=== PATIENT | female | born 1955 | race Caucasian/White ===

== ENCOUNTER → 2019-04-09 13:32 | Outpatient (CLI) | payer BC, SELFPAY ==
--- NOTE | ~2019-04-09 | XR_ITS ---
EXAMINATION: XR chest 2V DATE: 04/09/2019 13:55 INDICATION: Tobacco use TECHNIQUE: Frontal and lateral views of the chest are obtained COMPARISON: None available FINDINGS: There is a 3.8 cm spiculated mass in the right upper lobe. The lungs are hyperinflated. The re is no pleural effusion or pneumothorax. The cardiomediastinal silhouette is normal. There is mild thoracic spondylosis. Surgical clips in the right upper quadrant are likely from prior cholecystectom y. IMPRESSION: 1. 3.8 cm spiculated mass of the right upper lobe concerning for primary bronchogenic carcinoma. Furt her evaluation with CT is recommended. Reviewed, dictated and finalized at location A. Y ASSISTANT IMPRESSION: 1. 3.8 cm spiculated mass of the right upper lobe concerning for primary bronch ogenic carcinoma. Further evaluation with CT is recommended.
== END ==
PROVIDERS: PCP Family Medicine; Visit Provider Family Medicine
DX: R10.9 Unspecified abdominal pain (principal); R91.8 Other nonspecific abnormal finding of lung field
CPT/HCPCS: 71046

== ENCOUNTER → 2019-04-10 14:02 | Outpatient (CLI) | payer BC, SELFPAY ==
--- NOTE | ~2019-04-10 | US_ITS ---
EXAMINATION: US renal BI EXAM DATE: 04/10/2019 14:28 INDICATION: Right leg pain, back pain, symptoms for greater than one week. TECHNIQUE: Multiple grayscale and Doppler images of the kidneys were obtained (by a technologist who performed the scan) and subsequently reviewed. There is no prior study for comparison. FINDINGS: Right kidney: There is normal contour and echogenicity. It measures 10.3 x 3.8 x 5.5 centimeters. T here are no focal renal lesions identified. There is no hydronephrosis. Left kidney: There is normal contour and echogenicity. It measures 10.3 x 4.8 x 4.9 centimeters. Sma ll scattered calyceal region echogenic foci without definite shadowing. There is no hydronephrosis. Bladder unremarkable. IMPRESSION: 1. Possible left nephrolithiasis. 2. No hydronephrosis. Reviewed, dictated and finalized at location B. E FERRY OPERATOR
== END ==
PROVIDERS: PCP Family Medicine; Visit Provider Family Medicine
DX: R52 Pain, unspecified (principal); Z87.442 Personal history of urinary calculi; Z87.448 Personal history of other diseases of urinary system; R91.8 Other nonspecific abnormal finding of lung field; F17.200 Nicotine dependence, unspecified, uncomplicated
CPT/HCPCS: 76775

== ENCOUNTER → 2019-04-13 09:13 | Outpatient (CLI) | payer BC, SELFPAY ==
--- NOTE | ~2019-04-13 | CT_ITS ---
EXAMINATION: CT chest wo con DATE: 04/13/2019 09:30 INDICATION: Abnormal masses seen on recent chest x-ray TECHNIQUE: Computed tomography (CT) of the chest was performed without intravenous contrast. The dose -length product was 135.91 mGy-cm. Automated exposure control and iterative reconstruction technique were employed. COMPARISON: Chest dated 04/09/2019 FINDINGS: There is a right upper lobe mass measuring 4.1 x 3.9 x 3.3 cm, compatible with primary bron chogenic carcinoma. There is emphysema. There is an irregular cystic lesion of the right middle lobe with nodular appearance to the wall. No endobronchial lesions. There is a borderline size precarinal lymph node measuring 8.5 mm, image 49. There is atherosclerosis of the aorta and coronary arteries. S tatus post cholecystectomy. There are nonobstructing left renal stones. There is a superior endplate compression fracture of T11, likely chronic. IMPRESSION: 1. 4.1 cm right upper lobe mass, concerning for primary bronchogenic carcinoma. Percutaneous biopsy r ecommended. 2: Nonspecific nodular cystic lesion right middle lobe. This is most likely infectious/inflammatory a lthough metastatic disease is not excluded. 3: Borderline sized mediastinal lymph node, nonspecific. 4: Nonobstructing left nephrolithiasis. Reviewed, dictated and finalized at location B. AISER TIMBER IMPRESSION: 1. 4.1 cm right upper lobe mass, concerning for primary bronchogenic carcinoma. Percutaneous biopsy recommended. 2: Nonspecific nodular cystic lesion right middle lobe. This is most likely inf ectious/inflammatory although metastatic disease is not excluded. 3: Borderline sized mediastinal lymph node, nonspecific. 4: Nonobstructing left nephrolithiasis.
== END ==
PROVIDERS: PCP Family Medicine; Visit Provider Family Medicine
DX: R91.8 Other nonspecific abnormal finding of lung field (principal); N20.0 Calculus of kidney
CPT/HCPCS: 71250

== ENCOUNTER → 2019-05-05 13:46 | Outpatient (CLI) | payer BC, SELFPAY ==
--- NOTE | ~2019-05-05 | MR_ITS ---
EXAMINATION: MR brain/brain stem wo/w con DATE: 05/05/2019 14:35 INDICATION: Lung cancer. Metastases. TECHNIQUE: Magnetic resonance imaging (MRI) of the brain and brainstem was performed without and with 10 cc MultiHance intravenous contrast. Sequences included sagittal and axial T1-weighted SE, axial d iffusion-weighted FS SE, axial T2*-weighted GRE, axial T2-weighted FLAIR Propeller, and axial T2-weig hted Propeller. Apparent diffusion coefficient (ADC) maps were created. COMPARISON: None. FINDINGS: Brain parenchymal volume is normal for age. Structures of the posterior fossa including 7/8 th cranial nerve complexes are normal. There are scattered mild periventricular and subcortical white matter changes, most likely related to small vessel ischemic disease (microangiopathy). No evidence for acute infarction or hemorrhage. No abnormal contrast enhancement, mass or mass effect. Structures of the posterior fossa are unremarkable. Small air-fluid level left maxillary sinus. Orbits are symm etric. IMPRESSION: 1. No acute intracranial abnormality. No evidence for metastatic disease. 2: Chronic age-related findings. 3: Mild left maxillary sinusitis. Reviewed, dictated and finalized at location A.
[2019-05-05 14:12] LABS: Estimated Glomerular Filt Rate > 60
== END ==
PROVIDERS: PCP Family Medicine
DX: C34.90 Malignant neoplasm of unspecified part of unspecified bronchus or lung (principal); J32.0 Chronic maxillary sinusitis
CPT/HCPCS: 36415; 70553; A9577

== ENCOUNTER 2019-12-21 09:01 | Outpatient (CLI) | payer BC, SELFPAY ==
--- NOTE | ~2019-12-21 | CT_ITS ---
EXAMINATION: CT chest abdomen w con EXAM DATE: 12/21/2019 09:38 INDICATION: Metastatic lung cancer TECHNIQUE: Spiral CT of the chest and abdomen was performed following intravenous injection of 100 mL Omnipaque 350. Axial, coronal and sagittal images were reviewed. Coronal maximum intensity pixel i mages of chest reviewed. The dose-length product (DLP) for this examination was 189.39 mGy-cm. The exposure was tailored according to patient size (auto mA exposure control), and iterative reconstruct ion (ASIR) was used as additional dose reduction technique. Comparison is made to prior examination f rom 04/13/2019. FINDINGS: CHEST: There is a right upper lobe mass measuring 2.6 cm (was about 4.2 and March. This has spiculat ions. There is mild to moderate emphysema. No central pulmonary emboli. There are no pleural or jin cardial effusions. Tracheobronchial tree is patent. There is no mediastinal, hilar or axillary ly mphadenopathy. There is no pneumothorax. Heart normal in size. There is mild coronary arterial calcification, arterial sclerosis. ABDOMEN: At the right liver dome there is a hyperenhancing 6 mm region with surrounding 20 mm region of slightly increased enhancement. Could be a flash filling hemangioma. No other liver lesions are id entified. Splenic atrophy. There are cholecystectomy clips. Portal and splenic veins are patent. K idneys enhance symmetrically. There is no hydronephrosis. There is 6 mm left superior calyceal stone . There is no retroperitoneal lymphadenopathy. There is moderate scattered arteriosclerotic disea se, some abdominal aortic ectasia. The stomach and small bowel are unremarkable. There is expected amount of colonic stool. No free i ntraperitoneal gas. There is a slightly sclerotic focus within the T1 vertebral body which is not a pparent on prior study, possible developing osseous metastatic disease. There is mild chronic anterio r wedging of the T11 vertebral body at the superior endplate. IMPRESSION: 1. Decrease in size of right upper lobe mass. 2. Development of vaguely sclerotic region in T1, possible osteoblastic disease. 3. Hyperenhancing small right liver lobe lesion, surrounding halo. Most likely hemangioma. Hypervasc ular metastasis not excludable. 4. Left nephrolithiasis. Reviewed, dictated and finalized at location A. ONAL BUSINESS DIRECTOR IMPRESSION: 1. Decrease in size of right upper lobe mass. 2. Development of vaguely sclerotic region in T1, possible osteoblastic diseas e. 3. Hyperenhancing small right liver lobe lesion, surrounding halo. Most likely hemangioma. Hypervascular metastasis not excludable. 4. Left nephrolithiasis.
[2019-12-21 09:36] LABS: Estimated Glomerular Filt Rate > 60
== END 2019-12-21 09:02 | disposition home or self-care (01) ==
PROVIDERS: PCP Family Medicine; Visit Provider Internal Medicine Medical Oncology
DX: C34.11 Malignant neoplasm of upper lobe, right bronchus or lung (principal); C79.72 Secondary malignant neoplasm of left adrenal gland; N20.0 Calculus of kidney; K76.9 Liver disease, unspecified; I70.90 Unspecified atherosclerosis
CPT/HCPCS: 71260; 74160; Q9967

== ENCOUNTER → 2020-02-25 08:46 | Outpatient (CLI) | payer BC, SELFPAY ==
--- NOTE | ~2020-02-25 | CT_ITS ---
EXAMINATION: CT chest abdomen pelvis w con DATE: 02/25/2020 09:17 INDICATION: Metastatic lung cancer TECHNIQUE: Transaxial computed tomographic images of the chest, abdomen, and pelvis were obtained aft er the administration of 100 cc of Omnipaque 350 intravenous contrast. The dose-length product (DLP) was 376.66 mGy-cm. Automated exposure control and iterative reconstruction technique were employed. COMPARISON: 12/21/2019 FINDINGS: CHEST CT: A 2.7 x 2.5 cm spiculated right upper lobe nodule is stable since the comparison examination. There i s moderate emphysema. A bullae is noted in the right middle lobe. The heart size is normal. There are no pathologically enlarged thoracic lymph nodes. Calcified coronary artery atherosclerosis is noted. There is no pleural effusion or pneumothorax. An unchanged sclerotic lesion is present in the T1 parveen tebral body. Chronic anterior wedging of the T11 vertebral body is noted. ABDOMEN/PELVIS CT: There is a 6 mm enhancing lesion of the liver dome with a subtle 1.7 cm halo of surrounding contrast enhancement. The surrounding enhancement is decreased since the comparison examination. The spleen is atrophic otherwise normal in appearance. The gallbladder is surgically absent. The pancreas right ad renal gland are normal. There is stable mild nodular thickening of the left adrenal gland. A 4 mm non obstructing stone is present in the left kidney upper pole. Cysts of the right kidney measure up to 8 mm. No pathologically enlarged abdominal or pelvic lymph nodes are identified. There is no free intr aperitoneal gas or evidence of bowel obstruction. There is calcified atherosclerosis of the aorta and many of the other arteries. There is mild lumbar spondylosis. IMPRESSION: 1. Stable right upper lobe mass, consistent with primary bronchogenic carcinoma. 2. Enhancing lesion of the liver dome with decrease in size of the surrounding halo of enhancement, p ossibly metastatic disease. 3. Stable indeterminate sclerotic lesion of the T1 vertebral body. 4. Mild nodularity of the left adrenal gland without significant change, likely treated metastatic lorraine george. Reviewed, dictated and finalized at location A. INCT CAPTAIN IMPRESSION: 1. Stable right upper lobe mass, consistent with primary bronchogenic carcinoma . 2. Enhancing lesion of the liver dome with decrease in size of the surrounding halo of enhancement, possibly metastatic disease. 3. Stable indeterminate sclerotic lesion of the T1 vertebral body. 4. Mild nodularity of the left adrenal gland without significant change, likely treated metastatic disease.
[2020-02-25 09:06] LABS: Estimated Glomerular Filt Rate > 60
== END ==
PROVIDERS: PCP Family Medicine; Visit Provider Internal Medicine Medical Oncology
DX: C34.11 Malignant neoplasm of upper lobe, right bronchus or lung (principal); C79.72 Secondary malignant neoplasm of left adrenal gland; R91.8 Other nonspecific abnormal finding of lung field; R93.89 Abnormal findings on diagnostic imaging of other specified body structures
CPT/HCPCS: 71260; 74177; Q9967

== ENCOUNTER → 2020-05-16 10:02 | Outpatient (CLI) | payer BC, SELFPAY ==
--- NOTE | ~2020-05-16 | CT_ITS ---
EXAMINATION: CT chest abdomen pelvis w con EXAM DATE: 05/16/2020 10:32 INDICATION: Malignant neoplasm of upper lobe of right lung . Restaging of metastatic lung cancer on i mmunotherapy. Adrenal cancer. TECHNIQUE: Spiral CT of the chest, abdomen and pelvis was performed following intravenous injection o f 100 mL Omnipaque 350. Axial, coronal and sagittal images were reviewed. Coronal maximum intensity pixel images of chest reviewed. The dose-length product (DLP) for this examination was 341.34 mGy-c m. The exposure was tailored according to patient size (auto mA exposure control), and iterative rec onstruction (ASIR) was used as additional dose reduction technique. Comparison is made to prior exami nation from 02/25/2020. FINDINGS: CHEST: Spiculated necrotic right upper lobe mass measuring about 2.6 x 2.1 cm, overall size does not appear significantly changed. There has been development of extensive interlobular septal thickening surrounding this, probably radiation pneumonitis. There is mild emphysema. Mild hyperinflation. Mild bronchiectasis. There are no pleural or pericardial effusions. Tracheobronchial tree is patent. There is no mediastinal, hilar or axillary lymphadenopathy. There is no pneumothorax. Heart norm al in size. ABDOMEN PELVIS: There is 6 mm hyperenhancing mass at the right liver dome, differential diagnosis inc luding flash filling hemangioma and less likely unchanged hypervascular metastasis. Left adrenal 1.0 cm nodule, adenoma versus metastatic disease. Spleen, right adrenal gland, pancreas are unremarkable. There are cholecystectomy clips. Portal and splenic veins are patent. Kidneys enhance symmetrical ly. There is no hydronephrosis. There is left nephrolithiasis, several stones but largest measuring 4 mm. The uterus is not identified and has likely been surgically resected. The bladder is unremark able. There is no retroperitoneal or pelvic lymphadenopathy. There is aortoiliac ectasia with scat tered arteriosclerotic disease. The appendix is not positively visualized. There is no pericecal inflammatory change to suggest appe ndicitis. The stomach and small bowel are unremarkable. There is moderate amount of colonic stool. No free intraperitoneal gas. Vaguely sclerotic region in T1 appears unchanged, could be hemangio ma. Metastatic disease not excludable. There is chronic mild to moderate T11 anterior wedging. Sequel a from a previously removed left femoral intramedullary anai. IMPRESSION: 1. Necrotic right upper lobe mass, stable but with development of diffuse adjacent interlobular sept al thickening most likely radiation related change assuming that history. 2. Stable small liver lesion, left adrenal lesion and T1 vaguely sclerotic focus. These are indeterm inate. 3. Mild emphysema, hyperinflation and bronchiectasis. 4. Left nephrolithiasis. 5. No new or acute suspicious findings. Reviewed, dictated and finalized at location A. IMPRESSION: 1. Necrotic right upper lobe mass, stable but with development of diffuse omaira cent interlobular septal thickening most likely radiation related change assumi ng that history. 2. Stable small liver lesion, left adrenal lesion and T1 vaguely sclerotic foc us. These are indeterminate. 3. Mild emphysema, hyperinflation and bronchiectasis. 4. Left nephrolithiasis. 5. No new or acute suspicious findings.
[2020-05-16 10:23] LABS: Estimated Glomerular Filt Rate > 60
== END ==
PROVIDERS: PCP Family Medicine; Visit Provider Internal Medicine Medical Oncology
DX: C34.11 Malignant neoplasm of upper lobe, right bronchus or lung (principal); C79.72 Secondary malignant neoplasm of left adrenal gland; J43.9 Emphysema, unspecified; N20.0 Calculus of kidney
CPT/HCPCS: 71260; 74177; Q9967

== ENCOUNTER → 2020-08-16 10:21 | Outpatient (CLI) | payer BC, SELFPAY ==
--- NOTE | ~2020-08-16 | CT_ITS ---
EXAMINATION: CT chest abdomen pelvis w con EXAM DATE: 08/16/2020 10:48 INDICATION: Malignant neoplasm of upper lobe of right lung . Restaging of metastatic lung cancer on chemotherapy, immunotherapy, status post radiation therapy. Adrenal cancer. TECHNIQUE: Spiral CT of the chest, abdomen and pelvis was performed following intravenous injection o f 100 mL Omnipaque 350. Axial, coronal and sagittal images were reviewed. Coronal maximum intensity pixel images of chest reviewed. The dose-length product (DLP) for this examination was 378.38 mGy-c m. The exposure was tailored according to patient size (auto mA exposure control), and iterative rec onstruction (ASIR) was used as additional dose reduction technique. Comparison is made to prior exami nation from 05/16/2020. FINDINGS: CHEST: Spiculated necrotic right upper lobe mass measuring about 2.5 x 1.8 cm (previous dimensions a t this level 2.7 x 2.4 cm), mild decrease in volume. Probably some surrounding mild radiation pneumon itis. No central pulmonary emboli. There is mild emphysema, hyperinflation and bronchiectasis. There are no pleural or pericardial effusions. Tracheobronchial tree is patent. There is no mediastina l, hilar or axillary lymphadenopathy. There is no pneumothorax. Heart normal in size. ABDOMEN PELVIS: Stable 6 mm hyperenhancing mass at the right liver dome, differential diagnosis inclu ding flash filling hemangioma and less likely hypervascular metastasis. Stable left adrenal 1.0 cm no dule, adenoma versus metastatic disease. Spleen, right adrenal gland, pancreas are unremarkable. The re are cholecystectomy clips. Portal and splenic veins are patent. Kidneys enhance symmetrically. There is no hydronephrosis. There is left nephrolithiasis, several stones up to measuring 4 mm. The uterus is not identified and has likely been surgically resected. The bladder is unremarkable. Ther e is no retroperitoneal or pelvic lymphadenopathy. There is aortoiliac ectasia with scattered arter iosclerotic disease. The appendix is not positively visualized. There is no pericecal inflammatory change to suggest appe ndicitis. The stomach and small bowel are unremarkable. There is moderate amount of colonic stool. No free intraperitoneal gas. Vaguely sclerotic region in T1 appears unchanged, most likely heman gioma. There is chronic mild to moderate T11 anterior wedging. Sequela from a previously removed left femoral intramedullary anai. IMPRESSION: 1. Necrotic right upper lobe mass, mild decrease in volume. Adjacent mild radiation pneumonitis. 2. Stable small liver lesion, left adrenal lesion, T1 lesion (probably hemangioma). 3. Mild emphysema, hyperinflation and bronchiectasis. 4. Left nephrolithiasis. 5. No new or acute suspicious findings. Reviewed, dictated and finalized at location A. IMPRESSION: 1. Necrotic right upper lobe mass, mild decrease in volume. Adjacent mild radi ation pneumonitis. 2. Stable small liver lesion, left adrenal lesion, T1 lesion (probably hemangi morris). 3. Mild emphysema, hyperinflation and bronchiectasis. 4. Left nephrolithiasis. 5. No new or acute suspicious findings.
[2020-08-16 10:37] LABS: Estimated Glomerular Filt Rate 56
== END ==
PROVIDERS: PCP Family Medicine; Visit Provider Internal Medicine Medical Oncology
DX: C34.11 Malignant neoplasm of upper lobe, right bronchus or lung (principal); K76.89 Other specified diseases of liver; J43.9 Emphysema, unspecified; N20.0 Calculus of kidney
CPT/HCPCS: 71260; 74177; Q9967

== ENCOUNTER → 2021-02-23 12:39 | Outpatient (CLI) | payer BC, SELFPAY ==
--- NOTE | ~2021-02-23 | CT_ITS ---
EXAMINATION: CT chest abdomen pelvis w con EXAM DATE: 02/23/2021 13:11 INDICATION: Malignant neoplasm of upper lobe of right lung. TECHNIQUE: Spiral CT of the chest, abdomen and pelvis was performed following intravenous injection o f 100 mL Omnipaque 350. Axial, coronal and sagittal images chest, abdomen and pelvis were reviewed. Coronal maximum intensity pixel images of chest reviewed. The dose-length product (DLP) for this ex amination was 323.18 mGy-cm. The exposure was tailored according to patient size (auto mA exposure c ontrol), and iterative reconstruction (ASIR) was used as additional dose reduction technique. Compari son is made to prior examination from 08/16/2020. FINDINGS: CHEST: Stable appearance, size to the right upper lobe heterogeneous density pleural-based masslike opacity, measuring 2.5 x 1.7 cm and associated spiculations rating out from this. Appearance is consi stent with treated malignancy. Mild to moderate emphysema and hyperinflation. Mild bronchiectasis. Th ere are no pleural or pericardial effusions. Tracheobronchial tree is patent. There is no mediast inal, hilar or axillary lymphadenopathy. There is no pneumothorax. Heart normal in size. No centr al pulmonary emboli. There is moderate coronary arterial calcification, arterial sclerosis. ABDOMEN PELVIS: Right liver dome 6 mm region of arterial enhancement is also stable, could be flash f illing hemangioma, small vascular malformation, less likely hypervascular metastasis. No other liver lesions. Left adrenal nodularity stable. Pancreas is unremarkable. There are cholecystectomy clips. Portal and splenic veins are patent. Kidneys enhance symmetrically. There is no hydronephrosis. The uterus is unremarkable. The bladder is unremarkable. There is no retroperitoneal or pelvic lym phadenopathy. There is extensive scattered arterial sclerotic disease. There are no findings to suggest appendicitis. The stomach and small bowel are unremarkable. There is expected amount of colonic stool. No free intraperitoneal gas. There are no osteoblastic or os teolytic lesions identified. T1 lesion with thickened trabeculation probably hemangioma. Mild to mode rate compression fracture of T11, chronic. Left femoral defect which could be from prior intramedulla ry anai. IMPRESSION: 1. Stable right upper lobe treated malignancy. 2. Stable small right liver dome lesion. 3. Stable left adrenal nodularity. 4. Mild to moderate emphysema and hyperinflation. Reviewed, dictated and finalized at location A. ARD RACETRACK
[2021-02-23 12:57] LABS: Estimated Glomerular Filt Rate > 60
== END ==
PROVIDERS: PCP Family Medicine; Visit Provider Internal Medicine Medical Oncology
DX: C34.11 Malignant neoplasm of upper lobe, right bronchus or lung (principal); K76.9 Liver disease, unspecified; E27.8 Other specified disorders of adrenal gland; J43.9 Emphysema, unspecified; R91.8 Other nonspecific abnormal finding of lung field
CPT/HCPCS: 71260; 74177; Q9967

== ENCOUNTER → 2021-06-09 10:11 | Outpatient (CLI) | payer BC, SELFPAY ==
--- NOTE | ~2021-06-09 | CT_ITS ---
EXAMINATION: CT chest abdomen pelvis w con DATE: 06/09/2021 10:45 INDICATION: Right upper lobe lung cancer restaging TECHNIQUE: Computed tomography (CT) of the chest, abdomen, and pelvis was performed with 100 CC Omnip aque 350 intravenous contrast. Automated exposure control and iterative reconstruction technique were employed. Exam dose: 324.19 mGy-cm total exam DLP. COMPARISON: 02/23/2021 CT chest abdomen pelvis FINDINGS: CHEST CT: Mild bilateral stable apical scarring. Stable posteromedial right upper lobe paraspinal scarring, not significantly changed since 02/23/2021. Mild discoid atelectasis in the left lower lobe since 02/23/2021. Mild to moderate emphysematous changes. No significant new or developing pulmonary mass density is no ann marie. Normal size and homogeneous attenuation of the thyroid gland. Normal heart size. Coronary artery calcification. Thoracic aortic and great vessel calcification. No thoracic aortic aneurysm or dissection. No pericardial or pleural effusion. No hilar or mediastinal mass lesion or lymphadenopathy. ABDOMEN/PELVIS CT: Status post cholecystectomy. No hepatic or splenic, pancreatic, adrenal or suspicious renal space occ upying mass lesion is evident. Several renal cysts are noted, largest on the right, measuring 11 mm. Nonobstructing upper pole left renal 3 mm calculus. No ureteral calculus or hydroureteronephrosis is noted on either side. The urinary bladder is unremarkable. There is extensive abdominal aortic calcification but no aneurysm. Prominent calcification of the ed ac and femoral arteries. There are shotty nonenlarged periaortic and aortocaval lymph nodes. No intraperitoneal or retroperito maricarmen or pelvic mass lesion or adenopathy or ascites is noted. No bowel obstruction or intraperitoneal free air. Status post hysterectomy. The urinary bladder is unremarkable. Diffuse osteopenia. Moderate anterior wedge compression fracture deformities and sclerosis of T6 and T7 since 02/23/2021. Stable moderate anterior wedge compression fracture deformity of T11. Moderately severe degenerative disease at L1-2 and L5-S1 with mild retrolisthesis at L5-S1. IMPRESSION: Stable right upper lobe scarring New mild discoid atelectasis in left lower lobe since 02/23/2019. Emphysema Status post cholecystectomy Renal cysts 3 mm nonobstructing upper pole left renal calculus Status post hysterectomy New moderate anterior wedge compression fracture deformities and sclerosis of T6 and T7 since 02/23/19 22 Stable T11 compression fracture and osteosclerosis of T1 Reviewed, dictated and finalized at [facility] Reviewed, dictated and finalized at [facility]. IMPRESSION: Stable right upper lobe scarring New mild discoid atelectasis in left lower lobe since 02/23/2019. Emphysema Status post cholecystectomy Renal cysts 3 mm nonobstructing upper pole left renal calculus Status post hysterectomy New moderate anterior wedge compression fracture deformities and sclerosis of T 6 and T7 since 02/23/2021 Stable T11 compression fracture and osteosclerosis of T1
[2021-06-09 10:31] LABS: Estimated Glomerular Filt Rate > 60
== END ==
PROVIDERS: PCP Family Medicine; Visit Provider Internal Medicine Medical Oncology
DX: C34.11 Malignant neoplasm of upper lobe, right bronchus or lung (principal); J43.9 Emphysema, unspecified; Z90.49 Acquired absence of other specified parts of digestive tract; N28.1 Cyst of kidney, acquired; N20.0 Calculus of kidney; S22.060A Wedge compression fracture of T7-T8 vertebra, initial encounter for closed fracture; S22.050A Wedge compression fracture of T5-T6 vertebra, initial encounter for closed fracture; X58.XXXA Exposure to other specified factors, initial encounter
CPT/HCPCS: 71260; 74177; Q9967

== ENCOUNTER → 2021-09-15 11:01 | Outpatient (CLI) | payer BC, SELFPAY ==
--- NOTE | ~2021-09-15 | DEXA_ITS ---
Bone Density Report Name: SYD LEZAMA Age: 65 Sex: Female Ethnicity: White Date of : 1955 Indication: postmenopausal; screening for osteoporosis; height loss; prior fracture; cancer; Referring Provider: Hadley, Garrett Lloyd Study: Bone densitometry was performed. Exam Date: September 15, 2021 Accession number: [id number] Bone Density: Region BMD T-score Z-score Classification AP Spine (L1-L4) 0.667 -3.5 -1.6 Osteoporosis Femoral Neck (Left) 0.325 -4.7 -3.2 Osteoporosis Total Hip (Left) 0.380 -4.6 -3.3 Osteoporosis Femoral Neck (Right) 0.373 -4.3 -2.7 Osteoporosis Total Hip (Right) 0.473 -3.8 -2.6 Osteoporosis Total Hip Mean 0.427 -4.2 -3.0 Osteoporosis World Health Organization criteria for BMD impression classify patients as: Normal (T-score at or above -1.0), Osteopenia (T-score between -1.0 and -2.5), or Osteoporosis (T-score at or below -2.5). 10-year Fracture Risk: FRAX not reported because: Some T-score for Spine Total or Hip Total or Femoral Neck at or below -2.5 Prior hip or vertebral fracture Clinical Information Provided by Patient: Have had a previous hip or vertebral fracture Has had a low trauma fracture Smokes Has used the following medications: Vitamin D, MTV Has the following medical conditions: Cancer, HX OF STAGE 4 RIGHT LUNG CA AND LEFT ADRENAL GLAND WITH RADIATION AND CHEMO -2020 AND NOW ON IMMUNOTHERAPY Patient maximum height was 64.0 Menopause Age: 50 No regular weight bearing exercise Drinks caffeinated beverages Onset of menses at age 16 Number of children 0 Impression: The patient has established osteoporosis, based on the Left Femoral Neck T-score and the existence of a prior fracture. The patient has risk factors, including: smoking, previous fracture. Discussion: HIGH RISK OF FRACTURE. BONE DENSITY IS UNDESIRABLY LOW AT ONE OR MORE SKELETAL SITES, CONSISTENT WITH POSTMENOPAUSAL OSTEOPOROSIS. This patient's lowest T-score, in a patient who has previously fractured, meets the World Health Organization's (WHO) criteria for severe osteoporosis. In untreated patients, the risk of osteoporotic fracture increases approximately two-fold for each 1.0 SD decrease in T-score. Low bone density is not the only risk factor for fracture; also consider factors such as patient's age, frailty or poor health, risk of falling, risk of injury, previous osteoporotic fracture, family history of osteoporosis, cigarette smoking, low body weight, etc. Not everyone with low bone mineral density has osteoporosis; osteomalacia and other metabolic bone disorders should also be considered. Patients who have osteoporosis should be evaluated for specific diseases and conditions (secondary causes) that may cause or contribute to bone loss. The [place] [employer]ocrinologists (AACE) and Jannie
--- NOTE | ~2021-09-15 | DEXA_ITS ---
Bone Density Report Name: SYD LEZAMA Age: 65 Sex: Female Ethnicity: White Date of : 1955 Indication: postmenopausal; screening for osteoporosis; height loss; prior fracture; cancer; Referring Provider: Hadley, Garrett Lloyd Study: Bone densitometry was performed. Exam Date: September 15, 2021 Accession number: [id number] Bone Density: Region BMD T-score Z-score Classification Total Forearm (Left) 0.377 -3.7 -1.9 1/3 Forearm (Left) 0.451 -4.0 -2.2 UD Forearm (Left) 0.259 -3.0 -1.7 World Health Organization criteria for BMD impression classify patients as: Normal (T-score at or above -1.0), Osteopenia (T-score between -1.0 and -2.5), or Osteoporosis (T-score at or below -2.5). Clinical Information Provided by Patient: Have had a previous hip or vertebral fracture Has had a low trauma fracture Smokes Has used the following medications: Vitamin D, MTV Has the following medical conditions: Cancer, HX OF STAGE 4 RIGHT LUNG CA AND LEFT ADRENAL GLAND WITH RADIATION AND CHEMO -2020 AND NOW ON IMMUNOTHERAPY Patient maximum height was 64.0 Menopause Age: 50 No regular weight bearing exercise Drinks caffeinated beverages Onset of menses at age 16 Number of children 0 Impression: The patient has established osteoporosis, based on the Left Third Radius T-score and the existence of a prior fracture. The patient has risk factors, including: smoking, previous fracture. Discussion: HIGH RISK OF FRACTURE. BONE DENSITY IS UNDESIRABLY LOW AT ONE OR MORE SKELETAL SITES, CONSISTENT WITH POSTMENOPAUSAL OSTEOPOROSIS. This patient's lowest T-score, in a patient who has previously fractured, meets the World Health Organization's (WHO) criteria for severe osteoporosis. In untreated patients, the risk of osteoporotic fracture increases approximately two-fold for each 1.0 SD decrease in T-score. Low bone density is not the only risk factor for fracture; also consider factors such as patient's age, frailty or poor health, risk of falling, risk of injury, previous osteoporotic fracture, family history of osteoporosis, cigarette smoking, low body weight, etc. Not everyone with low bone mineral density has osteoporosis; osteomalacia and other metabolic bone disorders should also be considered. Patients who have osteoporosis should be evaluated for specific diseases and conditions (secondary causes) that may cause or contribute to bone loss. The [place] [employer]ocrinologists (AACE) and National Osteoporosis Foundation (NOF) recommend pharmacologic intervention for all postmenopausal women with a previous hip or vertebral fracture and a T-score in this range. The patient should follow a healthful lifestyle (good nutrition with adequate calcium and vitamin D, and appropriate weight-bearing exercise). Follow-Up: Consider a repeat BMD and Vertebral Fracture Assessment (VFA) exam in 2 years or sooner if medically necessary, to reassess this patient's status. Reported by: JAZ on 09/15/2021 12:07:00 PM
== END ==
PROVIDERS: PCP Family Medicine; Visit Provider Internal Medicine Medical Oncology
DX: Z13.220 Encounter for screening for lipoid disorders (principal); M81.0 Age-related osteoporosis without current pathological fracture; S22.000A Wedge compression fracture of unspecified thoracic vertebra, initial encounter for closed fracture
CPT/HCPCS: 77080; 77081

== ENCOUNTER → 2021-09-28 08:07 | Outpatient (CLI) | payer BC, SELFPAY ==
--- NOTE | ~2021-09-28 | CT_ITS ---
EXAMINATION: CT chest abdomen pelvis w con DATE: 09/28/2021 08:38 INDICATION: Malignant neoplasm of the right upper lobe TECHNIQUE: Computed tomography (CT) of the chest, abdomen, and pelvis was performed with 100 mL Omnip aque-300 intravenous contrast. Automated exposure control and iterative reconstruction technique were employed. The dose-length product was 297.83 mGy-cm. COMPARISON: 06/09/2021 FINDINGS: CHEST CT: Stable appearance of mild biapical pleural parenchymal scarring and more prominent region of radiatio n fibrosis and scarring in the paravertebral right upper lobe consistent with provided history of sandi ated lung cancer. Mild emphysema. A few scattered bilateral <4 mm calcified and noncalcified pulmonar y nodules unchanged since 04/13/2019 consistent with old granulomatous disease. A couple unchanged line ar bands of discoid atelectasis/scarring in the left lower lobe. No pneumonia, new or enlarging pulmo nary nodules, pulmonary edema or pleural effusion. Heart size is normal. Atherosclerotic coronary art deshawn calcification is. No pericardial effusion. Thoracic aorta is normal in caliber with no dissection . No pathologically enlarged thoracic lymphadenopathy. Unchanged T7 burst fracture with 40% anterior vertebral body height loss in the couple millimeter retropulsion resulting in mild central canal sten osis. Additional chronic compression fractures with 20% anterior vertebral body height loss at T6 and T11. Also without change since 2019 is a sclerotic lesion at the right side of T1 with coarse centra l trabecular pattern consistent with a hemangioma. ABDOMEN/PELVIS CT: Cholecystectomy clips the gallbladder fossa. The liver, pancreas and bilateral adrenal glands are nor mal. Again seen are bilateral low-attenuation renal cysts, the larger on the right measuring 1 cm. 3 mm nonobstructing stone at the upper pole of the left kidney. Small spleen with irregular contour sug gesting sequela of either chronic trauma or infarct. There appears be some wall thickening in the di stal colon which could be artifact of decompressed state or due to colitis. No bowel obstruction. The appendix is not visualized. No pericecal inflammatory change to suggest acute appendicitis. Bladder is normal. The uterus is not identified and has likely been surgically resected. No free intraperiton eal gas or fluid. No pathologically enlarged abdominal or pelvic lymphadenopathy. There is calcified atherosclerosis of the aorta and many of the other arteries. Mild lumbar levocurvature with mild spon dylosis. IMPRESSION: 1. Stable appearance of paravertebral scarring in the right upper lobe consistent with treated lung c ancer. No evident metastatic disease in the chest, abdomen or pelvis. 2. Nonobstructing 3 mm left renal stone. 3. Mild wall thickening in the distal colon which could be artifact of decompressed state or due to c olitis which could be infectious, inflammatory or ischemic in etiology. Reviewed, dictated and finalized at [facility]. IMPRESSION: 1. Stable appearance of paravertebral scarring in the right upper lobe consiste nt with treated lung cancer. No evident metastatic disease in the chest, abdome n or pelvis. 2. Nonobstructing 3 mm left renal stone. 3. Mild wall thickening in the distal colon which could be artifact of decompre ssed state or due to colitis which could be infectious, inflammatory or ischemi c in etiology.
[2021-09-28 08:29] LABS: Estimated Glomerular Filt Rate > 60
== END ==
PROVIDERS: PCP Family Medicine; Visit Provider Internal Medicine Medical Oncology
DX: C34.11 Malignant neoplasm of upper lobe, right bronchus or lung (principal); C79.72 Secondary malignant neoplasm of left adrenal gland; N20.0 Calculus of kidney
CPT/HCPCS: 71260; 74177; Q9967

== ENCOUNTER → 2022-01-03 08:43 | Outpatient (CLI) | payer BC, SELFPAY ==
--- NOTE | ~2022-01-03 | CT_ITS ---
EXAMINATION: CT chest abdomen pelvis w con DATE: 01/03/2022 09:14 INDICATION: Malignant neoplasm of upper lobe of right lung. TECHNIQUE: Computed tomography (CT) of the chest, abdomen, and pelvis was performed with 100 mL Omnip aque 350 intravenous contrast. Automated exposure control and iterative reconstruction technique were employed. The dose-length product was 296.11 mGy-cm. COMPARISON: CT 09/28/2021, 12/21/19, 04/13/19 FINDINGS: CHEST CT: There are airspace opacities in posterior segment right upper lobe with volume loss and architectural distortion. There is mild emphysema. There is mild atelectasis bilaterally. A calcified right lung n odule and calcified right hilar lymph nodes are consistent with old granulomatous disease. No pleural effusion. There are a few scattered 2 mm nodules in the lungs, likely benign. No pleural effusion. T here are nodules in the thyroid measuring up to 5 mm, likely not clinically significant. The heart si ze is normal. There are coronary artery calcifications. No pericardial effusion. There are healing fr actures of posterior right fifth and sixth ribs. There is a chronic sclerotic lesion in T1 vertebral body, likely a hemangioma. There is a chronic compression fracture of T6. There is a chronic burst fr acture of T7. There is a chronic compression fracture of T11. ABDOMEN/PELVIS CT: There is a chronic 7 mm hyperenhancing mass in right hepatic lobe, likely a hemangioma or focal nodul ar hyperplasia. There are changes of cholecystectomy. The spleen, pancreas, adrenal glands are normal . There is are cysts in the kidneys measuring up to 11 mm on the right. There is mild atrophy of left kidney involving the upper pole. There is a 3 mm stone in left kidney. There are no dilated loops of bowel. There is moderate stenosis of celiac axis and mild stenosis of superior mesenteric artery and the renal arteries. There are no pathologically enlarged lymph nodes. There is no free intraperitone al fluid. There is linear sclerosis and proximal left femur, likely healing after instrumentation rem oval. There is moderate thoracic spondylosis. IMPRESSION: 1. Stable airspace opacities in right upper lobe with volume loss and architectural distortion, consi stent with primary bronchogenic carcinoma and radiation fibrosis. Reviewed, dictated and finalized at [facility]. TECHNICIAN IMPRESSION: 1. Stable airspace opacities in right upper lobe with volume loss and business intelligence architect ural distortion, consistent with primary bronchogenic carcinoma and radiation f ibrosis.
[2022-01-03 09:02] LABS: Estimated Glomerular Filt Rate > 60
== END ==
PROVIDERS: PCP Family Medicine; Visit Provider Internal Medicine Medical Oncology
DX: C34.11 Malignant neoplasm of upper lobe, right bronchus or lung (principal)
CPT/HCPCS: 71260; 74177; Q9967

== ENCOUNTER → 2022-04-06 08:13 | Outpatient (CLI) | payer BC, SELFPAY ==
--- NOTE | ~2022-04-06 | CT_ITS ---
Clinical Indication: Lung cancer metastatic to left adrenal gland CT Scan of the Chest, Abdomen, and Pelvis with Contrast: Technique: Contiguous sections were acquired throughout the chest, abdomen, and pelvis after intraven ous administration of 100 cc of Omnipaque 350. Dose reduction technique was used on this scan by filemon gomez automated exposure control and iterative reconstruction technique. The dose-length product (DL P) was 273.97 mGy-cm. COMPARISON: 01/03/2022 Findings: There is no evidence of any significant mediastinal, hilar or axillary lymphadenopathy. The mediastin al soft tissues and vascular structures appear normal. There is no evidence of pleural or pericardial effusion. There is a stable masslike density along the posterior medial aspect of the right upper lobe. No new pulmonary abnormality seen. Stable subcentimeter enhancing lesion in the peripheral right hepatic lobe, likely small hemangioma. The spleen, pancreas, gallbladder, adrenals and kidneys are within normal limits. No evidence of aor tic aneurysm. There are atherosclerotic calcifications of the aorta. No lymphadenopathy. No bowel obstruction or bowel wall thickening. There is no evidence to suggest acute appendicitis. Urinary bladder is unremarkable. No pelvic mass seen. No ascites. Stable compression fractures of T6, T7, and T11 are present. Impression: No change from prior exam. Stable irregular masslike density at the posterior medial right upper lobe. This could reflect treate d disease and/or radiation fibrosis. No evidence for metastatic disease identified on this exam. Stable compression fractures of T6, T7, and T11. Reviewed, dictated and finalized at [facility]. [place] HOST/HOSTESS Impression: No change from prior exam. Stable irregular masslike density at the posterior medial right upper lobe. Thi s could reflect treated disease and/or radiation fibrosis. No evidence for metastatic disease identified on this exam. Stable compression fractures of T6, T7, and T11.
[2022-04-06 08:38] LABS: Estimated Glomerular Filt Rate > 60
== END ==
PROVIDERS: PCP Family Medicine
DX: C34.11 Malignant neoplasm of upper lobe, right bronchus or lung (principal); C79.72 Secondary malignant neoplasm of left adrenal gland; S22.050A Wedge compression fracture of T5-T6 vertebra, initial encounter for closed fracture; S22.060A Wedge compression fracture of T7-T8 vertebra, initial encounter for closed fracture; S22.080A Wedge compression fracture of T11-T12 vertebra, initial encounter for closed fracture; X58.XXXA Exposure to other specified factors, initial encounter
CPT/HCPCS: 71260; 74177; Q9967

== ENCOUNTER 2024-11-30 16:33 | Emergency (ER) | payer MEDICARE, SELFPAY ==
--- OUTSIDE RECORDS SUMMARY | 2011-11-27 09:05 | XMS_ITS | Continuity of Care Document ---
Author Organization [facility] Address [address] [place] [address] Phone Care Team Providers Care Lead Business Systems Analyst Name Role Phone Maddie Grissom MD Unavailable Unavailabl e Allergies, Adverse Reactions, Alerts Substance Reaction Status Criticality No Known allergies Medications Medication Instructions Dosage Effective Dates (start - stop) Status Comments Crestor 5 mg Tab take 2 tablet (10MG) by oral route every day 10 MG - Active Procedures Procedure Date MU Reporting Advance Directives Directive Yes / No Effective Date File Name Resuscitation Not Answered N/A N/A Life Support Not Answered N/A N/A Intubation Not Answered N/A N/A Antibiotics Not Answered N/A N/A IV Fluid Support Not Answered N/A N/A Tube Feed Not Answered N/A N/A Other Directive N/A N/A WARNING:The information contained in this section is historical and is provided for information only and does not constitute a legal document or any assurance that the information is still accurate. Please verify the information with the maldonado of the legal document before using it for clinical purposes. Encounters Encounter Description Practice Location Reason(s) For Visit Diagnoses Date Provider Providers Copied on Encounter [facility] , [address] [facility], [place], [address], [place] tel:[phone] [facility] knee pain (chief complaint) Pain in joint involving lower legOsteoarthr osis, localized, primary, involving lower leg 2 [facility]. [address] , [place], [place], [id number] . tel: [phone] Referring Provider: Mike Hemphill V, [address], [place], [address]. tel:[phone] [facility] , [address], [place], [address], tel:[phone] [facility] left knee pain (chief complaint) Unspecified arthropathy involving lower leg 3 0-201 2 [facility] [place]. [address], [place], [place], [id number] . tel: [phone] Referring Provider: Mike Hemphill V, [address], [place], [address]. tel:[phone] Family History Family Member Type Diagnosis Age At Onset Mother Problem (finding) Heart disease Father Problem (finding) Hodgkin's disease Mother Problem (finding) hypertension Mother Problem (finding) Maternal history of lizbet betes mellitus Payers Payer name Insurance type Covered alliance party ID Authoriza tion(s) No Information Social History Type Description Quantity Date Captured Comments Alcohol Use Details Unknown Caffeine Use Details Unknown Tobacco Use Status No Information Smoking Status No Information Sex Female Chief Complaint And Reason For Visit From encounter dated '11/27/2011 14:05'. Lt knee pain (chief complaint) Reason For Referral Reason For Referral No Information Plan Of Treatment Date Type Action Status Goal Tobacco cessation counseling completed History Of Present Illness Encounter Date Complaint History Of Prese nt Illness No Information Functional Status Date Functional Assessmen t No Information Instructions Date Instruction Additional Infor mation Physical activity counseling Rel ated to Dietary Surveillance counseling Assessments Type Assessment Date No Information Patient Care Teams Name Effective Dates (start - stop) Status Members No Information
--- NOTE | ~2024-11-30 | XR_ITS ---
XR knee RT 3V INDICATION: Fall . COMPARISON: None. FINDINGS: Frontal, lateral and oblique views of the right knee demonstrate mild depression of the lateral tibial plateau may represent a acute fracture. There is a suprapatellar joint effusion. IMPRESSION: There is mild depression of the lateral tibial plateau with suprapatellar joint effusion suggestive of a depressed tibial plateau fracture. Reviewed, dictated and finalized at location S.
--- NOTE | ~2024-11-30 | XR_ITS ---
XR shoulder RT min 2V HISTORY: Fall . COMPARISON: None. FINDINGS: External and internal rotated views and scapular Y view of the right shoulder demonstrate no acute fracture or dislocation. Acromioclavicular joint and glenohumeral joint are unremarkable. IMPRESSION: No acute fracture or dislocation. Reviewed, dictated and finalized at location S.
[2024-11-30 17:13] VITALS: BP 137/48; PULSE 109; RESP 20; TEMP 36.7; O2SAT 99
--- NOTE | 2024-11-30 18:31 | ED.LOWEXIN ---
HPI - Extremity Injury (Lower) General Chief Complaint: Extremity Injury, Lower Stated Complaint: 'I think I broke my leg Time Seen by Provider: 11/30/24 18:21 Source: patient and family Mode of arrival: wheelchair Limitations: no limitations History of Present Illness HPI Narrative: This is a 69-year-old female with history of lung cancer in remission for 3 years who presents to the ED fall and right knee pain. Patient states that yesterday she was walking on her wet stairs when she slipped and fell backwards. Denies hitting her head loss conscious. She is not on any blood thinners. He she has had significant pain to the right knee to the point that she has not been able walk. She has been scooting around her house all day. Daughter found her today and brought her into the ED for further evaluation. Related Data Home Medications ?Medication ?Instructions ?Recorded ?Confirmed ?Last Taken ?Type dexamethasone 4 mg tablet 4 mg PO DAILY 03/23/20 03/23/20 Unknown History Allergies Allergy/AdvReac Type Severity Reaction Status Date / Time No Known Allergies Allergy Unverified 04/09/19 11:58 Review of Systems Review of Systems: Gen.: Denies fevers or chills Eyes: Denies eye pain or visual change ENT: Denies congestion Respiratory: Denies shortness of breath or cough CV: Denies chest pain or palpitations GI: Denies abdominal pain nausea, emesis or diarrhea denies burning, urgency, frequency or hematuria Musculoskeletal: As per HPI Neuro: Denies numbness, tingling, weakness or focal weakness Skin: Denies rash Except as documented, all other systems reviewed and negative [facility] Past Medical History Medical History History of nephrolithiasis Right flank pain Social History Social History Smoking status: Current some day smoker Exam Narrative: APPEARANCE: No acute distress, nontoxic, resting in bed HEENT: Normocephalic, atraumatic, OMM RESPIRATORY: No respiratory distress CARDIOVASCULAR: Appears well perfused ABDOMINAL: Nondistended MUSCULOSKELETAl: Suprapatellar effusion to the right knee. Tenderness palpation to the proximal right leg. Pain with minimal passive range of motion of the right knee. NEURO: Awake and alert. SKIN:: Warm, dry. No rashes lesions or abrasions PSYCHIATRIC: Normal affect/mood, Course Vital Signs Vital signs: Vital Signs Temperature 98.0 F 11/30/24 17:13 Pulse Rate 109 H 11/30/24 17:13 Respiratory Rate 20 11/30/24 17:13 Blood Pressure 137/48 L 11/30/24 17:13 Pulse Oximetry 99 11/30/24 17:13 Oxygen Delivery Room Air 11/30/24 17:13 Temperature 98.0 F 11/30/24 17:13 Pulse Rate 97 11/30/24 19:05 Respiratory Rate 17 11/30/24 19:05 Blood Pressure 137/61 11/30/24 19:05 Pulse Oximetry 99 11/30/24 19:05 Oxygen Delivery Room Air 11/30/24 17:13 MDM - Extremity Injury (Lower) MDM Narrative Medical decision making narrative: 69-year-old female presenting for right knee pain after fall yesterday. On initial evaluation, patient is no acute distress afebrile, hemodynamically stable. She did swelling and tenderness over the right knee. X-ray right knee was obtained which did show evidence of a tibial plateau fracture. Patient also noticed the right shoulder related to move shoulder x-ray was obtained and showed no fractures. I discussed this case with Dr. Cruz, orthopedic surgery, who recommended placing patient in a knee immobilizer and using a walker to get around as needed. He will see her in his office in the next few days for re-evaluation and further surgical planning. Patient and family are agreeable to this plan. Given strict return precautions. Differential Diagnosis Differential diagnosis: Likely other (Fracture, sprain, strain, contusion) Medical Records Attestation: I reviewed the patient's medical records. Imaging Data Attestation: I personally reviewed and interpreted this imaging study as follows: Radiologist's impression: Impressions Knee X-Ray 11/30/24 18:14 IMPRESSION: There is mild depression of the lateral tibial plateau with suprapatellar joint effusion suggestive of a depressed tibial plateau fracture. Shoulder X-Ray 11/30/24 18:16 IMPRESSION: No acute fracture or dislocation. Discharge Plan Discharge Clinical Impression: Closed fracture of tibial plateau Qualifiers: Encounter type: initial encounter Laterality: right Qualified Code(s): S82.141A - Displaced bicondylar fracture of right tibia, initial encounter for closed fracture Patient Disposition: Home Condition: Stable Instructions: Antibiotic Form, Leg Fracture (ED) Additional Instructions: Please only use the walker when you need to ambulate. Follow-up with orthopedic surgery in the next few days for re-evaluation. Take [place] and Zofran as prescribed. Return to ED for any new or worsening symptoms. Patient Language: Bahamian Prescriptions: New hydrocodone-acetaminophen 5-325 mg tablet 1 tablet PO Q6H PRN (Reason: pain) Qty: 12 0RF ondansetron 4 mg tablet,disintegrating 4 mg PO Q8H PRN (Reason: nausea and vomiting) Qty: 14 0RF No Action dexamethasone 4 mg tablet 4 mg PO DAILY naproxen 500 mg tablet 500 mg PO BID Qty: 60 3RF Follow-up/Referrals: Derek Cruz MD [Physician, Orthopedics] UNKNOWN,DOCTOR [Non-Staff]
--- OUTSIDE RECORDS SUMMARY | 2024-11-30 18:50 | XMS_ITS ---
Author Organization [facility] Address [address] [place] [address] Care Team Providers Care Manufacturing Engineer Assembly Name Role Phone Luh Bradford MD Primary Care Provider + Luh Bradfrod MD Unavailable [phone] Garrett Butcher DO Unavailable [phone] Roland Goodman MD Unavailable [phone] Active Problems Patient Care Coordination No te Formatting of this note migh t be different from the original. Ms. Radha Hinton is a 63-year-old with a lung mass. Patient recently established care with a new primary care provider. She had complaints of urinary symptoms and flank pain. Patient underwent a routine chest x-ray due to tobacco use. On 04/09/2019 the patient underwent a chest x-ray which showed a 3.8 cm spiculated mass in the right upper lobe. On 04/13/2019 the patient subsequently underwent a chest CT without contrast which showed a right upper lobe mass measuring 4.1 x 3.9 x 3.3 cm, compatible with a primary bronchogenic carcinoma. There was an irregular cystic lesion of the right middle lobe with nodular appearance to the wall. There were no endobronchial lesions. A precarinal lymph node measured 8.5 mm. There is atherosclerosis of the aorta and coronary arteries. There was a likely chronic compression fracture of T11. On 04/10/2019 the patient underwent routine lab work and the patient was found to be positive for hepatitis-C. Her liver enzymes were within normal limits. Patient is a current 0.5 pack per day smoker and has a 24 pack year smoking history. Patient is scheduled for a PET scan and pulmonary function testing prior to her appointment today. Patient presents today for further surgical evaluation. Review of systems: All systems were reviewed and are negative. Problem Noted Date Diagnosed Date Osteoporosis without current pathological fractu re 10/05/2021 Malignant neoplasm metastatic to left adrenal gl and 05/19/2019 Malignant neoplasm of upper lobe of right lung 0 05/06/2019 Overview (05/06/2019): Added automatically from request for surgery [id number] Current Treatment and Therapy Plans IV MAINTENANCE THERAPY PLAN* Plan Start Date:09/08/2020 Plan Provider:Garrett Butcher DO Linked Problems Malignant neoplasm of upper lobe of right lung (HCC) Treatment Medications No medications scheduled. Other Current Plans denosumab (PROLIA) Injection* Plan Start Date:10/13/2021 Plan Provider:Garrett Butcher DO Linked Problems Age-related osteoporosis wit hout current pathological fracture Treatment Medications No medications scheduled. Past Treatment and Therapy Plans Oncology Chemotherapy Treatment Plan Name Start Date Discontinue Date Treatment Medications Discontinue Reason Plan Provider Cycles pembrolizumab / pemetrexed / CARBOplatin ( C1-4) 21 day cycles - Non-Small Cell Lung 0 01/08/2022 CARBOplatin (PARAPLATIN) IVPB in 250 mLpembrolizumab (KEYTRUDA)pembrol izumab (KEYTRUDA) IVPB in 100 mLPEMEtrexed (ALIMTA)PEMEtrexe d (ALIMTA) IVPB ([id number]) Therapy Complete Garrett Butcher DO 38 of 38 cycles started Radiation Treatments * Course C1 [id number] 06/12/2019 - 06/22/2019 Treatment Period Energy Fraction Dose Fractions Total Dose Plans Planned RT LUNG 06/12/2019 - 06/22/2019 1,100 5 / 5,500 LT ADRENAL 06/12/2019 - 06/12/2019 1,500 1 / 4,500 Reference Points Delivered PTV_RUL 06/12/2019 - 06/22/2019 5,500 adrenal dpv 06/12/2019 - 06/12/2019 1,500
--- OUTSIDE RECORDS SUMMARY | 2024-11-30 18:50 | XMS_ITS | Clinical Summary ---
Author Organization [facility] Address [address] [place] [address] Care Team Providers Care Apparatus Engineering Technologist Name Role Phone Luh Bradford MD Primary Care Provider + Luh Bradford MD Unavailable [phone] Garrett Butcher DO Unavailable [phone] Roland Goodman MD Unavailable [phone] Allergies No known active allergies Medications multivitamin,tx- minerals tablet Take by mouth Active ascorbic acid (VITAMIN C) 500 mg tablet,chewable Acti ve triamcinolone-em ollient comb86 0.1 % creamIndications :Allergic Dermatitis,Skin Inflammation Apply 453.6 g topically 3 (three) times a day 453.6 g 1 2 Active Additional Information Patient not taking.Reported on 04/25/2022 triamcinolone (KENALOG) 0.1 % creamIndications :Skin Inflammation Apply topically three times a day 453.6 g 3 Active Active Problems Patient Care Coordination No te [...] (05/06/2019): Added automatically from request for surgery [id number] Immunizations Immunization Administration Dates Next Due Pfizer SARS-CoV-2 Monovalent Vaccination (12+ Yrs) PURPLE 10/13/2020,04/15/2020,03/18/2020 Surgical History Surgery Date Site/Laterality Comments CHOLECYSTECTOMY COLONOSCOPY LEG SURGERY plate/pin removed Medical History Medical History Date Comments Bronchitis Hepatitis C HLD (hyperlipidemia) Nephrolithiasis History of transfusion Endometriosis Colon polyp Lung cancer (HCC) Family History Medical History Relation Name Comments Heart disease Father Heart disease Mother Breast cancer Sister Relation Name Status Comments Father Mother Sister Alive Social History Tobacco Use Types Packs/Day Years Used Date Smoking Tobacco: Some Days Cigarettes 0.1 45 Smokeless Tobacco: Never Tobacco Cessation:Ready to Q uit: Yes Alcohol Use Standard Drinks/Week Comments Yes 2 (1 standard drink = 0.6 oz pur e alcohol) rarely AUDIT-C Answer Date Recorded Q1: How often do you have a drink containing alc ohol? 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 file Not on file [employer] Not on file Not on file Not on f ile Obstetrics History Last Filed Vital Signs Vital Sign Reading Time Taken Comments Blood Pressure 138/83 04/25/2022 11:17 AM CDT Pulse 83 04/25/2022 11:17 AM CDT Temperature 36.3 C (97.4 F) 04/25/2022 11:17 AM CDT Respiratory Rate 16 04/25/2022 11:17 AM CDT Oxygen Saturation 99% 04/25/2022 11:17 AM CDT Inhaled Oxygen Concentration - - Weight 42.3 kg (93 lb 3.2 oz) 04/25/2022 11:17 A M CDT Height 163.8 cm (5' 4.5) 04/25/2022 11:17 AM CD T Body Mass Index 15.75 04/25/2022 11:17 AM CDT Plan of Treatment Health Maintenance Due Date Last Done Comments Breast Cancer Screening-Mammogram 1955 Colon Cancer Screening-Colonoscopy 1955 Depression Screening 1955 DTaP/Tdap/Td Vaccine (1 - Tdap) 10/02/1966 Hepatitis B Screening 10/02/1973 Pneumococcal vaccine 65+ (1 of 2 - PCV) 10/02/1974 Zoster Vaccine (1 of 2) 10/02/1974 Fall Risk Assessment 05/12/2020 05/13/2019 Well Visit 65+ 10/02/2020 Osteoporosis Screening-Bone Density Scan 09/16/2023 09/15/2021 Covid-19 Vaccine ( season) 2024 10/13/2020, 04/15/2020, 03/18/2020 Influenza Vaccine (#1) 2024 Hepatitis C Screening Completed 04/20/2019 Procedures Procedure Name Priority Date/Time Associated Diagnosis Comments DEXA AXIAL SKELETON BONE DENSITY 1 OR MORE SITES Schedule Routine, Read Routine (OP Routine) 09/15/2021 from Last 3 Months or Most Recently Relevant to Health Maintenance Results * Dexa Axial Skeleton Bone Density 1 or 2 Site (09/15/2021) Anatomical Region Laterality Modality Body N/A Radiographic Siri ging Garrett Butcher DO IMG DXA PROCEDURES Final Res ult from Last 3 Months or Most Recently Relevant to Health Maintenance Insurance [employer] [address] [place] [address] [place] [facility] Advance Directives For more information, please contact: [phone] * Full Code (Latest Code Status on File) Date Activated Date Inactivated Comments 05/13/2019 9:58 AM 05/13/2019 6:34 PM Care Teams Apparatus Engineering Technologist Relationship Specialty Start Date End Date Luh Bradford MD PCP - General Family Medicine 04/15/19 Luh Bradford MD Referring Physician Family Medicine 04/21/19 Garrett Butcher DO Medical Oncologist/Transmitter Supervisor Hematology and Oncology 06/22/19 Roland Goodman MD Radiation Oncologist Radiation Oncology 11/07/20
--- OUTSIDE RECORDS SUMMARY | 2024-11-30 18:50 | XMS_ITS | Clinical Summary ---
Author Organization [facility] Address [address] [place] [address] Care Team Providers Care Engine Pilot Name Role Phone Unavailable Primary Care Provider Unavailabl e Source Comments [facility],non-owned Affiliates and Associated Physician Practices is amultiple site organization consisting of ambulatory clinics and hospital sitesin [place], [place], [place] and [place]. This disclosure is being madepursuant to the Care Everywhere program and may not contain all information available regarding this patient. Last updated 17.[facility] Allergies No known active allergies Medications * Be aware that medications may not be up to date on this document. Alwaysverify current medications with the patient. benzonatate (TESSALON) 200 MG capsuleIndicati ons:Cough Take 1 capsule by mouth 3 times daily as needed for Cough 30 capsule 12/15/2016 Active Family History Medical History Relation Name Comments CAD (Coronary Artery Disease) Father [place] CAD (Coronary Artery Disease) Mother Diabetes - Type 2 Mother Relation Name Status Comments Father Mother Social History Tobacco Use Types Packs/Day Years Used Date Smoking Tobacco: Every Day Cigarettes 0.4 40 Smokeless Tobacco: Never Comments No Sex and Gender Information Value Date Recorded Sex Assigned at Not on file Legal Sex Female 12:06 PM CDT Gender Identity Not on file Sexual Orientation Not on file Last Filed Vital Signs Vital Sign Reading Time Taken Comments Blood Pressure 122/76 12/15/2016 12:09 PM CDT Pulse 78 12/15/2016 12:09 PM CDT Temperature 36.6 C (97.8 F) 12/15/2016 12:09 PM CDT Respiratory Rate 16 12/15/2016 12:09 PM CDT Oxygen Saturation 98% 12/15/2016 12:09 PM CDT Inhaled Oxygen Concentration - - Weight 63.5 kg (140 lb) 12/15/2016 12:09 PM CDT Height 162.6 cm (5' 4) 12/15/2016 12:09 PM CDT Body Mass Index 24.03 12/15/2016 12:09 PM CDT Plan of Treatment Health Maintenance Due Date Last Done Comments BONE DENSITY TESTING 1955 COLOGUARD (AGES 45-75) - COL ON CA SCREENING 1955 COLON MONITORING 1955 COLONOSCOPY - COLON CA SCREENING 1955 CT COLONOGRAPHY - COLON CA SCREENING 1955 Colorectal Cancer Screening 1955 FIT - COLON CA SCREENING 1955 FLEX SIG - COLON CA SCREENING 1955 LIPID TESTING 1955 MAMMOGRAM 1955 HEPATITIS C SCREENING 09/28/1973 DTAP/TDAP/TD VACCINES (1 - Tdap) 10/02/1974 PNEUMOCOCCAL VACCINE 50+ (1 of 1 - PCV) 10/02/2005 ZOSTER VACCINE (1 of 2) 10/02/2005 DEPRESSION SCREENING 02/12/2024 COVID-19 VACCINE (1 - 2023-2 5 season) 2024 INFLUENZA VACCINE (#1) 2024 Respiratory Syncytial Virus (RSV) Vaccine Pt: or over 60 yrs (1 - 1-dose 75+ series) 10/02/2030 HEPATITIS B VACCINE Aged Out No longe r eligible based on patient's age to complete this topic HIB VACCINE Aged Out No longer eligi ble based on patient's age to complete this topic HPV VACCINE Aged Out No longer eligi ble based on patient's age to complete this topic MENINGOCOCCAL (Group B) VACC INE SHARED DECISION-MAKING Aged Out No longer eligibl e based on patient's age to complete this topic MENINGOCOCCAL GROUPS A/C/Y/W VACCINE Aged Out No longer eligible b ased on patient's age to complete this topic Insurance [employer]
[2024-11-30] MEDS: oxyCODONE HCL (*CRX) 5 MG TAB IR PO (18:52)
[2024-11-30] MEDS: ONDANSETRON HCL ODT 4 MG TABLET PO (18:52)
[2024-11-30 19:05] VITALS: BP 137/61; PULSE 97; RESP 17; O2SAT 99
--- OUTSIDE RECORDS SUMMARY | 2024-11-30 19:25 | XMS_ITS | Clinical Summary ---
Author Organization [facility] Address [address] [place] [address] Care Team Providers Care Personal Banking Advisor Name Role Phone Unavailable Primary Care Provider Unavailabl e Source Comments [facility],non-owned Affiliates and Associated Physician Practices is amultiple site organization consisting of ambulatory clinics and hospital sitesin [place], [place], [place]. This disclosure is being madepursuant to the Care Everywhere program and may not contain all information available regarding this patient. Last updated 17.[facility] Allergies No known active allergies Medications * Be aware that medications may not be up to date on this document. Alwaysverify current medications with the patient. benzonatate (TESSALON) 200 MG capsuleIndicati ons:Cough Take 1 capsule by mouth 3 times daily as needed for Cough 30 capsule 12/15/2016 Active Family History Medical History Relation Name Comments CAD (Coronary Artery Disease) Father [place] CAD (Coronary Artery Disease) Mother Diabetes - [...] age to complete this topic Insurance [facility] Address: [facility] [id number] [place] [address]
--- OUTSIDE RECORDS SUMMARY | 2024-11-30 19:25 | XMS_ITS | Clinical Summary ---
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 Gender Identity Not on file Sexual Orientation Not on file 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 file Not on file [employer] Not on file Not on [...] to Health Maintenance Insurance [employer] [address] [place] [address] [employer] [place] [employer] [place] [facility] Advance Directives For more information, please contact: [phone] * Full Code (Latest Code Status on File) Date Activated Date Inactivated Comments 05/13/2019 9:58 AM 05/13/2019 6:34 PM Care Teams Computer Aided Design Technician Relationship Specialty Start Date End Date Luh Bradford MD PCP - General Family Medicine 04/15/19 Luh Bradford MD Referring Physician Family Medicine 04/21/19 Garrett Butcher DO Medical Oncologist/Depalletizer Operator Hematology and Oncology 06/22/19 Roland Goodman MD Radiation Oncologist Radiation Oncology 11/07/20
--- OUTSIDE RECORDS SUMMARY | 2024-11-30 19:25 | XMS_ITS ---
Author Organization [facility] Address [address] [place] [address] Care Team Providers Care Cigar Head Stringer Name Role Phone Luh Bradford MD Primary Care Provider + Luh Bradford MD Unavailable [phone] Garrett Butcher DO Unavailable [phone] Roland Goodman MD Unavailable [phone] Active Problems Patient Care Coordination No [...] (05/06/2019): Added automatically from request for surgery [id number] Current Treatment and Therapy Plans IV MAINTENANCE [...]
== END 2024-11-30 19:08 | disposition home or self-care (01) ==
LOC: ANHED 18:45
PROVIDERS: Emergency Provider Student in an Organized Health Care Education/Training Program; PCP Family Medicine
DX: S82.141A Displaced bicondylar fracture of right tibia, initial encounter for closed fracture (principal); Z87.442 Personal history of urinary calculi; Z85.118 Personal history of other malignant neoplasm of bronchus and lung; W10.9XXA Fall (on) (from) unspecified stairs and steps, initial encounter
CPT/HCPCS: 73030; 73562; 99284; A9270